=== PATIENT | female | born 1970 | race Caucasian/White ===

== ENCOUNTER 2017-11-03 12:08 | Emergency (ER) | payer OTHER ==
[~2017-11-03] VITALS: Ht 160 cm; Wt 90.7 kg
[~2017-11-03 12:08] MED LIST: ACETAMINOPHEN325 M1 PO; CARISOPRODOL350 MG PO; CEPHALEXIN500 MG PO; CHERATUSSIN AC118 ML PO; CIPRO500 MG PO; FUROSEMIDE40 MG PO; IMODIUM MULTI-1 EACH PO; KEFLEX500 MG PO; LASIX40 MG; LOMOTIL TABLET1 EACH PO; NORCO 10-325 T1 EACH PO; NORCO 5-325 TA1 EACH PO; NORCO 7.5-3251 EACH PO; PERCOCET 5-3251 EACH PO; POTASSIUM CHLO10 MEQ PO; POTASSIUM CHLO20 ME1 PO; PREDNISONE20 MG PO; PROMETHAZINE-COD5 ML PO; QUESTRAN POWDE378 GM PO; SOMA350 MG PO; TAMSULOSIN HCL0.4 MG PO; TESSALON PERLE100 MG PO; TRAMADOL HCL50 MG PO; ZOFRAN ODT4 MG PO; ZOFRAN ODT8 MG PO
[2017-11-03] MEDS ORDERED: GUAIFEN-CODEINE10 ML PO (13:06)
[2017-11-03] MEDS ORDERED: ZITHROMAX250 MG PO (13:06)
[2017-11-03] MEDS ORDERED: METHYLPREDNISOLO4 M1 PO (13:06)
== END 2017-11-03 13:16 | disposition home or self-care (01) ==
LOC: ED 12:08
DX: J04.0 Acute laryngitis (principal); I10 Essential (primary) hypertension; Z88.6 Allergy status to analgesic agent; Z88.8 Allergy status to other drugs, medicaments and biological substances
CPT/HCPCS: 99283

== ENCOUNTER 2018-09-29 22:18 | Emergency (ER) | payer OTHER ==
[~2018-09-29] VITALS: Ht 160 cm; Wt 96.6 kg
[~2018-09-29 22:18] MED LIST changes: +GUAIFEN-CODEINE10 ML PO; +METHYLPREDNISOLO4 M1 PO; +ZITHROMAX250 MG PO
[2018-09-29] MEDS ORDERED: CYMBALTA30 MG PO (22:34)
--- OUTSIDE RECORDS SUMMARY | 2018-09-29 22:56 | XMS ---
PreManage Notification: [facility] Security Book Publisher Events No recent Security Events currently on file CRITERIA MET - Group Notification - PDMP CARE PROVIDERS Lucio Hadley MD Treatment Current PHONE: Unknown Mindy has no Care Guidelines for this patient. EFred VISIT COUNT (12 MO.) 2 RUTH Hicks TOTAL 2 NOTE: Visits indicate total known visits. ED/UCC VISIT TRACKING (12 MO.) 09/29/2018 22:19 [facility] [place] TYPE: Emergency COMPLAINT: - FLU SYMPTOMS 11/03/2017 12:08 [facility] Trev[facility] [place] TYPE: Emergency COMPLAINT: - SORE THROAT/COUGH DIAGNOSES: - Allergy status to other drugs, medicaments and biological substances status - Cough - Essential (primary) hypertension - Acute laryngitis - Allergy status to analgesic agent status INPATIENT VISIT TRACKING (12 MO.) No inpatient visits to display in this time frame [id number]
[2018-09-29] MEDS ORDERED: AMOXICILLIN500 MG PO (23:37)
== END 2018-09-29 23:48 | disposition home or self-care (01) ==
LOC: ED 22:18
DX: H66.91 Otitis media, unspecified, right ear (principal); J06.9 Acute upper respiratory infection, unspecified; I10 Essential (primary) hypertension; Z88.6 Allergy status to analgesic agent; Z88.8 Allergy status to other drugs, medicaments and biological substances
CPT/HCPCS: 87502; 99283

== ENCOUNTER 2020-04-10 21:16 | Emergency (ER) | payer OTHER ==
[~2020-04-10] VITALS: Ht 160 cm; Wt 102.1 kg
[~2020-04-10 21:16] MED LIST changes: +AMOXICILLIN500 MG PO; +CYMBALTA30 MG PO
--- OUTSIDE RECORDS SUMMARY | 2020-04-10 21:20 | XMS ---
PreManage Notification: [facility] Security Director Of Development Events No recent Security Events currently on file CRITERIA MET - Group Notification - PDMP CARE PROVIDERS DEANDRE PARKER [facility] 09/30/2018-Current PHONE: [phone] Mindy has no Care Guidelines for this patient. Susanne VISIT COUNT (12 MO.) 1 RUTH Hicks TOTAL 1 NOTE: Visits indicate total known visits. ED/UCC VISIT TRACKING (12 MO.) 04/10/2020 21:17 [facility]vino [place] TYPE: Emergency COMPLAINT: - FALL INPATIENT VISIT TRACKING (12 MO.) No inpatient visits to display in this time frame [id number]
== END 2020-04-11 | disposition home or self-care (01) ==
LOC: ED 21:16
DX: S63.602A Unspecified sprain of left thumb, initial encounter (principal); S29.012A Strain of muscle and tendon of back wall of thorax, initial encounter; S16.1XXA Strain of muscle, fascia and tendon at neck level, initial encounter; S40.011A Contusion of right shoulder, initial encounter; S00.03XA Contusion of scalp, initial encounter; I10 Essential (primary) hypertension; Z88.8 Allergy status to other drugs, medicaments and biological substances; W10.9XXA Fall (on) (from) unspecified stairs and steps, initial encounter
CPT/HCPCS: 70450; 71046; 72125; 73030; 73140; 99284-25

== ENCOUNTER 2022-05-18 04:49 | Emergency (ER) | payer OTHER ==
[~2022-05-18] VITALS: Ht 160 cm; Wt 102.0 kg
--- OUTSIDE RECORDS SUMMARY | 2022-05-18 04:56 | XMS ---
PreManage Notification: [facility] Security Director Traffic And Planning Events No recent Security Events currently on file CRITERIA MET - Group Notification CARE PROVIDERS DEANDRE PARKER [facility] 09/30/2018-Current PHONE: Unknown Micaela Huynh-More Nurse Practitioner: Family Current PHONE: [phone] FREEMAN CHRISTIAN Physician 04/11/2020-Current PHONE: [phone] Mindy has no Care Guidelines for this patient. E.D. VISIT COUNT (12 MO.) 1 RUTH Hicks TOTAL 1 NOTE: Visits indicate total known visits. ED/UCC VISIT TRACKING (12 MO.) 05/18/2022 04:50 R[facility] Trevino [place] TYPE: Emergency COMPLAINT: - L SHOULDER PAIN INPATIENT VISIT TRACKING (12 MO.) No inpatient visits to display in this time frame [email or web address]
[2022-05-18] MEDS ORDERED: HYDROCODON-ACE1 EA10 PO (05:27)
== END 2022-05-18 05:45 | disposition home or self-care (01) ==
LOC: ED 04:49
DX: S46.912A Strain of unspecified muscle, fascia and tendon at shoulder and upper arm level, left arm, initial encounter (principal); I10 Essential (primary) hypertension; Z88.6 Allergy status to analgesic agent; Z88.8 Allergy status to other drugs, medicaments and biological substances; W19.XXXA Unspecified fall, initial encounter
CPT/HCPCS: 73030; 99283-25; A9270